=== PATIENT | male | born 1955 | race Caucasian/White ===

== ENCOUNTER 2018-02-05 09:22 | Emergency (ER) | payer MEDICARE, SELFPAY ==
[2018-02-05 09:23] VITALS: BP 204/101; PULSE 90; RESP 16; TEMP 36.5; O2SAT 98; BMI 29.0
--- NOTE | 2018-02-05 10:10 | ED.VISSUMM ---
- ER Visit Summary Date of Service: 02/05/18 Chief Complaint: Multiple complaints History of Present Illness: The patient is a 62 M presents with multiple complaints today. When asked specifically what he felt brought him to the emergency room he notes 2 things. One is that for the past several months he has had intermittent abdominal pain. He was seen in by [facility] about 6 weeks ago had a negative workup. He sees a monkey keeper for GERD and gastrobursitis. He thinks he means gastroparesis but is not sure. He has not followed up from that ER visit. The past 3 days he feels like the nausea is worst. States that when he drinks water it stuck in his throat when he drinks pop it is in his teeth. He notes irregular bowel movements which is chronic. He does have a history of taking Reglan Carafate polyethylene glycol and Dexilant. No fevers. Primary care physician is at [facility] in [place]. He is considering transferring all of his care to [place]. When asked why he came to [place] if he is transferring his care there he states that his son was in here 2 weeks ago with appendicitis. His second issue today is that he states that when he closes his eyes really tight he sees a rainbow color of light. He also notes pain in his right ear and some nasal congestion. He is a former smoker. He has a history of alcoholism and his last drink was 2 months and 2 weeks ago. Physical Examination: Afebrile vital signs are stable Gen: Well-nourished well-developed Head: Normocephalic atraumatic Eyes: Perrl EOMI ENT: TMs clear mucosal edema of the nose moist mucous membranes Neck: Supple no lymphadenopathy no JVD nontender CVS: Regular rate rhythm no murmurs normal S1-S2 Respiratory: No distress clear to auscultation bilaterally chest nontender Abdomen: Soft nontender nondistended normal bowel sounds no masses Back: Nontender Extremity: Nontender no edema Skin: Normal color no rash Neuro: alert orientated ?3 CN II-XII intact normal strength sensation reflexes gait cerebellar Psych: Normal affect normal mood Test Results: Basic labs are negative. Liver lipase normal. Urinalysis showed 25-50 red blood cells. Emergency Department Course and Treatment: Patient has multiple complaints I do not find any acute medical emergency that would necessitate admission to the hospital. We will treat his lumbar muscle spasm with some Flexeril. I will write for Zofran for his nausea. He is to follow-up with urology for his hematuria. Patient notes understanding of our plan Impression: 1. Lumbar muscles spasm 2. Eustachian tube dysfunction 3. Hematuria 4. Acute on chronic abdominal pain This note was generated with [employer] dictation software. It may contain incorrect words, spelling, and punctuation that were not noted in review of the chart prior to signing ED Disposition - Plan for ED Patient: Disposition: Home or Assisted Living Chief Complaint: General Illness Instructions: ED Abdominal Pain Unkn Cause, ED Sprain Strain Lumbar, ED Hematuria Prescriptions: Ondansetron [Zofran Odt] 4 mg PO Q6H PRN PRN #10 tab PRN Reason: Nausea Cyclobenzaprine [Flexeril] 10 mg PO TID PRN #15 tab PRN Reason: Muscle Spasm Referrals: [facility],Out of [Primary Care Provider] - (call to arrange early follow up with your PCP) David Contreras MD [STAFF PHYSICIAN] - (call to schedule exam for hematuria )
[2018-02-05 10:13] LABS: Absolute Lymphocyte Count 0.82 X10^3/ul (0.83-4.51); Absolute Neutrophil Count 6.8 X10^3/uL (2.0-7.7); Basophil# 0.01 X10^3/uL; Basophil% 0.1 % (0-1); Eosinophil# 0.01 X10^3/uL; Eosinophils% 0.1 % (0-5); Hematocrit 38.6 % (40-54); Hemoglobin 12.8 g/dl (13.0-16.5); Lymphocyte # 0.82 X10^3/ul (4.0); Lymphocyte % 9.3 % (19-41); Mean Corp Hgb Conc 33.2 g/gl (32-36); Mean Corpuscular Volume 87.5 fL (80-94); Mean Platelet Vol. 9.9 fl (6.2-12.0); Monocyte# 1.16 X10^3/uL; Monocyte% 13.2 % (0-10); Neutrophil # 6.77 X10^3/uL (2.7-7.7); Neutrophil % 77.2 % (47-70); POSITIVE COUNT NO; POSITIVE DIFFERENTIAL NO; POSITIVE MORPHOLOGY NO; Platelet Count 209 K/mm3 (150-450); RBC Distribution Width CV 13.9 % (11.6-14.6); RBC Distribution Width SD 44.6 fl (35.1-43.9); Red Blood Count 4.41 M/mm3 (4.6-6.2); White Blood Count 8.8 K/mm3 (4.4-11.0)
--- NOTE | 2018-02-05 10:13 | ED.DCSUM_ITS ---
- ER Visit Summary Date of Service: 02/05/18 Chief Complaint: Multiple complaints History of Present Illness: The patient is a 62 M presents with multiple complaints today. When asked specifically what he felt brought him to the emergency room he notes 2 things. One is that for the past several months he has had intermittent abdominal pain. He was seen in by [facility] about 6 weeks ago had a negative workup. 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 He thinks he means gastroparesis but is not sure. He has not followed up from that ER visit. The past 3 days he feels like the nausea is worst. States that when he drinks water it stuck in his throat when he drinks pop it is in his teeth. He notes irregular bowel movements which is chronic. He does have a history of taking Reglan Carafate polyethylene glycol and Dexilant. No fevers. Primary care physician is at [facility] in [place]. He is considering transferring all of his care to [place]. When asked why he came to [place] if he is transferring his care there he states that his son was in here 2 weeks ago with appendicitis. His second issue today is that he states that when he closes his eyes really tight he sees a rainbow color of light. He also notes pain in his right ear and some nasal congestion. He is a former smoker. He has a history of alcoholism and his last drink was 2 months and 2 weeks ago. Physical Examination: Afebrile vital signs are stable Gen: Well-nourished well-developed Head: Normocephalic atraumatic Eyes: Perrl EOMI ENT: TMs clear mucosal edema of the nose moist mucous membranes Neck: Supple no lymphadenopathy no JVD nontender CVS: Regular rate rhythm no murmurs normal S1-S2 Respiratory: No distress clear to auscultation bilaterally chest nontender Abdomen: Soft nontender nondistended normal bowel sounds no masses Back: Nontender Extremity: Nontender no edema Skin: Normal color no rash Neuro: alert orientated ?3 CN II-XII intact normal strength sensation reflexes gait cerebellar Psych: Normal affect normal mood Test Results: Basic labs are negative. Liver lipase normal. Urinalysis showed 25-50 red blood cells. Emergency Department Course and Treatment: Patient has multiple complaints I do not find any acute medical emergency that would necessitate admission to the hospital. We will treat his lumbar muscle spasm with some Flexeril. I will write for Zofran for his nausea. He is to follow-up with urology for his hematuria. Patient notes understanding of our plan Impression: 1. Lumbar muscles spasm 2. Eustachian tube dysfunction 3. Hematuria 4. Acute on chronic abdominal pain This note was generated with [employer] dictation software. It may contain incorrect words, spelling, and punctuation that were not noted in review of the chart prior to signing ED Disposition - Plan for ED Patient: Disposition: Home or Assisted Living Chief Complaint: General Illness Instructions: ED Abdominal Pain Unkn Cause, ED Sprain Strain Lumbar, ED Hematuria Prescriptions: Ondansetron [Zofran Odt] 4 mg PO Q6H PRN PRN #10 tab PRN Reason: Nausea Cyclobenzaprine [Flexeril] 10 mg PO TID PRN #15 tab PRN Reason: Muscle Spasm Referrals: [facility],Out of [Primary Care Provider] - (call to arrange early follow up with your PCP) David Contreras MD [STAFF PHYSICIAN] - (call to schedule exam for hematuria )
[2018-02-05 10:23] LABS: ALB/GLOB Ratio 0.9 RATIO (0.9-2.4); AST(SGOT) 10 U/L (15-37); Alanine Aminotransfer ALT/SGPT 11 U/L (16-61); Albumin, Serum 3.4 g/dL (3.2-5.0); Alkaline Phosphatase 84 U/L (45-117); Anion Gap 9 (5-15); BUN 8 mg/dL (7-18); BUN/Creat Ratio 9.4 RATIO (10-20); Calcium,Total 9.2 mg/dL (8.5-10.1); Chloride 107 mmol/L (98-107); Creatinine, Serum 0.85 mg/dL (0.70-1.30); EST Glomerular Filtration Rate 98 mL/min (>60); Est Glom Filt Rate - Afr Amer 118 mL/min (>60); Estimated Creatinine Clearance 86.41 ml/min; Globulin 3.6 g/dL (2.2-4.2); Glucose 102 mg/dL (74-106); Lipase 94 U/L (73-393); Potassium 3.5 mmol/L (3.5-5.1); Sodium Level 142 mmol/L (136-145)
[2018-02-05 10:47] LABS: Bacteria 0 SEEN /hpf (None Seen); Squamous Epithelial Cells - UA 0 SEEN /hpf (0-5)
[2018-02-05 10:48] LABS: Color, Urine Yellow (Yellow); Glucose, Dipstick Normal (Normal); Ketone-Dipstick 50 mg/dl (Negative); Leukocyte Esterase-Dipstick 25 /ul (Negative); Nitrite-Dipstick Negative (Negative); Occult Blood-Urine 250 /ul (Negative); Protein-Dipstick 15 mg/dl (Negative); Specific Gravity, Urine 1.015 (1.002-1.030); Urine Bilirubin Dipstick Negative (Negative); Urine Clarity Sl. Cloudy (Clear); Urine Urobilinogen 4 mg/dl (Normal)
[2018-02-05 10:55] LABS: Mucous, Urine 2+ /hpf (<or=2+); Red Blood Cells-Urine 25-50 SEEN /hpf (0-5); White Blood Cells 0-5 SEEN /hpf (0-5)
[2018-02-05 11:59] VITALS: BP 125/84; PULSE 93; RESP 15; O2SAT 94
[2018-02-05 12:43] VITALS: BP 147/85; PULSE 85; RESP 15; O2SAT 96
== END 2018-02-05 12:44 | disposition home or self-care (01) ==
PROVIDERS: Emergency Provider Emergency Medicine
DX: M62.830 Muscle spasm of back (principal); H69.81 Other specified disorders of Eustachian tube, right ear; R31.9 Hematuria, unspecified; R10.9 Unspecified abdominal pain; G89.29 Other chronic pain; E66.9 Obesity, unspecified; Z87.891 Personal history of nicotine dependence; Z79.899 Other long term (current) drug therapy
CPT/HCPCS: 80053; 81001; 83690; 85025; 99283; A4216

== ENCOUNTER 2018-06-15 12:07 | Emergency (ER) | payer MEDICARE, SELFPAY ==
[2018-06-15] VITALS (7 sets, daily range): BP systolic 121–131; BP diastolic 83–89; PULSE 72–84; RESP 12–18; TEMP 36.6; O2SAT 99; BMI 27.7
--- NOTE | 2018-06-15 12:44 | ED.DCSUM_ITS ---
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 Legal problems secondary to robbery to pay for alcohol addiction. Relieved by: Nothing Associated Symptoms: Depressed, Change in Eating, Change in sleeping, Decreased Interest, Suicidal Thoughts Specific plan (suicidal thought): . Cut abdomen with knife and occlude airway Narrative: Patient is a 62-year-old male who reports addiction to opiates after multiple orthopedic procedures i.e. the right and left total hip arthroplasty and cervical fusion. He then had problems with alcohol and tramadol. To obtain money to pay for his addiction he was found guilty of robbery. He is presently on probation. He has not taken any anti-psychotic or antidepressant medications in 2013. He states he has diagnosis of bipolar affective disorder. He states he needs help. He presently is on no psychiatric medication. He lives alone. Prior similar symptoms: Yes Recent Illness/Hospitalization: Yes Past Medical History - Allergies and Home Meds Allergies/Adverse Reactions: Allergies morphine Allergy (Verified 06/15/18 12:12) Hives acetaminophen [From Darvocet-N] Adverse Reaction (Verified 06/15/18 12:12) Upset Stomach propoxyphene [From Darvon] Adverse Reaction (Verified 06/15/18 12:12) Upset Stomach Primary Care Physician: [facility],Out of [Primary Care Provider] - Prior records reviewed: No Surgical History: noncontributory Lives: Alone Smoking Status: Former smoker Alcohol: Sober Drugs: - - Covering opiate addiction Review of Systems General: Denies: Chills, Fever, Sweats Eyes: Denies: Visual changes - bilaterally, Diplopia ENT: Denies: Rhinorrhea, Sore throat Cardiovascular: Denies: Chest pain, Palpitations Respiratory: Denies: Dyspnea, Cough, Dyspnea on exertion Gastrointestinal: Denies: Abdominal pain, Nausea, Vomiting, Diarrhea, Melena, Hematochezia Genitourinary: Denies: Dysuria, Hematuria, Frequency Musculoskeletal: Reports: Neck pain - Chronic secondary to fusion, Extremity Pain. Denies: Myalgias, Arthralgias, Back pain, Swelling Skin: Denies: Rash, Wounds Neurological: Reports: Headache - Occipital secondary to neck surgery Psych: Reports: Depression, Anxiety, Suicidal thoughts, Suicidal ideations Hematologic: Denies: Easy bruising, Easy bleeding Allergy: Denies: Uticaria, Swelling of the mouth Physical Exam Vital Signs/Narrative: Vital Signs Temp Pulse Resp BP Pulse Ox 06/15/18 12:09 97.8 F 72 12 131/89 H 99 Inital Vital Signs reviewed: Yes General: Well nourished, Well developed Head: Normocephalic, Atraumatic, Trauma Eyes: Perrl, EOMI. Negative for: Pale conjunctiva, Scleral icterus ENT: Moist mucous membranes, No rhinorrhea, TM's clear Neck: Supple, Nontender, No lymphadenopathy, No JVD Cardiovascular: Regular rate, Regular rhythm, No murmurs, Normal S1, Normal S2 Respiratory: No distress, CTA bilaterally, Chest nontender Abdomen: Soft, Nontender, Nondistended, Normal bowel sounds Back: Nontender, Normal Inspection Extremities: Nontender, No Edema Skin: Normal color, No rash Neurological: Alert, Oriented x3, Cranial nerves II-XII grossly intact, Normal Strength, Normal Sensation Psych: Normal Speech Pattern, Logical sequential goal directed thoughts, Depressed, Hallucinations - Intermittent auditory, Limited Insight. Negative for: No suicidal or homicidal ideation, Poverty of Speech, Flight of Ideas, Incoherent thoughts Diagnostic/Tx/Re-eval Laboratory Results 06/15/18 06/15/18 06/15/18 12:53 12:53 12:53 WBC 4.3 L RBC 5.44 Hgb 14.6 Hct 45.7 MCV 84.0 MCH 26.8 L MCHC 31.9 L RDW 15.0 H RDW Differential 45.8 H Plt Count 284 MPV 10.2 Immature Gran % (Auto) 0.200 Neut % (Auto) 60.9 Lymph % (Auto) 27.1 [place] % (Auto) 11.1 H Eos % (Auto) 0.5 Baso % (Auto) 0.2 Absolute Neuts (auto) 2.6 Absolute Lymphs (auto) 1.17 Total Counted Not Reportable Sodium 141 Potassium 3.7 Chloride 110 H Carbon Dioxide 26.0 Anion Gap 5 BUN 11 Creatinine 1.01 Estim Creat Clear Calc 72.72 Est GFR (MDRD) Af Amer 97 Est GFR (MDRD) Non-Af 80 BUN/Creatinine Ratio 10.9 Glucose 88 Calcium 9.4 Urine Opiates Screen Urine Methadone Screen Ur Barbiturates Screen Ur Phencyclidine Scrn Ur Amphetamines Screen U Methamphetamin-MDMA U Benzodiazepines Scrn Urine Cocaine Screen U Cannabinoids Screen Ur Drug Screen Comment Ethyl Alcohol 3.0 06/15/18 12:53 WBC RBC Hgb Hct MCV MCH MCHC RDW RDW Differential Plt Count MPV Immature Gran % (Auto) Neut % (Auto) Lymph % (Auto) [place] % (Auto) Eos % (Auto) Baso % (Auto) Absolute Neuts (auto) Absolute Lymphs (auto) Total Counted Sodium Potassium Chloride Carbon Dioxide Anion Gap BUN Creatinine Estim Creat Clear Calc Est GFR (MDRD) Af Amer Est GFR (MDRD) Non-Af BUN/Creatinine Ratio Glucose Calcium Urine Opiates Screen NEGATIVE Urine Methadone Screen NEGATIVE Ur Barbiturates Screen NEGATIVE Ur Phencyclidine Scrn NEGATIVE Ur Amphetamines Screen NEGATIVE U Methamphetamin-MDMA NEGATIVE U Benzodiazepines Scrn NEGATIVE Urine Cocaine Screen NEGATIVE U Cannabinoids Screen NEGATIVE Ur Drug Screen Comment Ethyl Alcohol - Rhythm Strip Rhythm Strip: Sinus Rhythm Rate: 74 Ectopy: None Restraints applied: No Patient with history of depression, opiate and alcohol addiction presents because of suicidal thoughts with lethal plan. He also had an attempt this morning which is significant. From a medical standpoint patient is clear. Will obtain baseline blood work to assure there are no abnormalities that necessitated treatment prior to psychiatric care. ED Disposition - Plan for ED Patient: Disposition: Acute Care Hospital - Other Diagnosis: Depression with suicidal ideation Referrals: [facility] Doctor,Out of [Primary Care Provider] -
[2018-06-15 13:16] LABS: Amphetamine Urine VISTA NEGATIVE (<1000 ng/mL); Anion Gap 5 (5-15); BUN 11 mg/dL (7-18); BUN/Creat Ratio 10.9 RATIO (10-20); Barbiturate Urine VISTA NEGATIVE (< 200 ng/mL); Benzodiazepine Urine VISTA NEGATIVE (< 200 ng/mL); Calcium,Total 9.4 mg/dL (8.5-10.1); Chloride 110 mmol/L (98-107); Cocaine Urine VISTA NEGATIVE (< 300 ng/mL); Creatinine, Serum 1.01 mg/dL (0.70-1.30); EST Glomerular Filtration Rate 80 mL/min (>60); Ecstacy Urine VISTA NEGATIVE (< 500 ng/mL); Est Glom Filt Rate - Afr Amer 97 mL/min (>60); Estimated Creatinine Clearance 72.72 ml/min; Glucose 88 mg/dL (74-106); Methadone Urine VISTA NEGATIVE (< 300 ng/mL); PCP Urine VISTA NEGATIVE (< 25 ng/mL); Potassium 3.7 mmol/L (3.5-5.1); Sodium Level 141 mmol/L (136-145); THC Urine VISTA NEGATIVE (< 50 ng/mL); Vista UDS pH Range 5
[2018-06-15 13:31] LABS: Absolute Lymphocyte Count 1.17 X10^3/ul (0.83-4.51); Absolute Neutrophil Count 2.6 X10^3/uL (2.0-7.7); Basophil# 0.01 X10^3/uL; Basophil% 0.2 % (0-1); Eosinophil# 0.02 X10^3/uL; Eosinophils% 0.5 % (0-5); Hematocrit 45.7 % (40-54); Hemoglobin 14.6 g/dl (13.0-16.5); Lymphocyte # 1.17 X10^3/ul (4.0); Lymphocyte % 27.1 % (19-41); Mean Corp Hgb Conc 31.9 g/gl (32-36); Mean Corpuscular Hgb 26.8 pg (27.0-32.0); Mean Platelet Vol. 10.2 fl (6.2-12.0); Monocyte# 0.48 X10^3/uL; Monocyte% 11.1 % (0-10); Neutrophil # 2.62 X10^3/uL (2.7-7.7); Neutrophil % 60.9 % (47-70); Platelet Count 284 K/mm3 (150-450); RBC Distribution Width SD 45.8 fl (35.1-43.9); Red Blood Count 5.44 M/mm3 (4.6-6.2); White Blood Count 4.3 K/mm3 (4.4-11.0)
[2018-06-15 13:38] LABS: POSITIVE COUNT NO; POSITIVE DIFFERENTIAL NO; POSITIVE MORPHOLOGY NO
== END 2018-06-15 18:15 ==
PROVIDERS: Emergency Provider Emergency Medicine
DX: R45.851 Suicidal ideations (principal); F32.9 Major depressive disorder, single episode, unspecified; Z87.891 Personal history of nicotine dependence
CPT/HCPCS: 36415; 80048; 80307; 80320; 85025; 99284; G0480